=== PATIENT | male | born 1990 | race Two or more races ===

== ENCOUNTER 2019-12-25 10:20 | Outpatient (REF) | payer OTHER, SELFPAY | END 2019-12-25 10:21 | disposition home or self-care (01) | LOC: HO.LAB 10:20 | PROVIDERS: Visit Provider Internal Medicine | DX: Z20.828 Contact with and (suspected) exposure to other viral communicable diseases (principal) | CPT/HCPCS: C9803; U0003 ==

== ENCOUNTER 2023-01-20 13:16 | Outpatient (AMB) | payer BC, SELFPAY ==
--- NOTE | 2023-01-20 13:18 | A.OFFPC_ITS ---
Vital Signs 01/20/23 13:20 Height 5 ft 7 in Weight 372 lb 2 oz BMI 58.3 BP 120/76 Blood Pressure Location Lt brachial Position Sitting Pulse 90 Pulse Source Pulse Oximeter Pulse Oximetry (%) 96 Oxygen Delivery Method Room Air Intake Visit Reasons: npv/requesting phy Intake Note: Patient is a new patient here to establish care for Season Asthma. Transferring care from Dr Cesar( [facility] Nunez). Medical records have not been requested and have not received. Clinical Data Specialist Required: No Meat Pickler: Not Required per policy Accompanied by: Self / Same As Patient Allergies No Known Allergies Allergy (Verified 01/20/23 13:43) Medication List - Last Reconciled 01/20/23 by Michael Shelton PA-C albuterol 90 mcg/actuation 90 mcg inhalation DAILY Tobacco use date assessed: 01/20/23 Dental Screening Dental Screen Date: 01/20/23 Did you have a dental visit in the last 12 months?: No Did you have a dental problem in the last 6 months where you did not have access to dental care?: No Was dental information given to patient?: Patient has dentist HPI npv/requesting phy HPI Details Patient is a 32-year-old male here today for a new patient visit. Patient has a past medical history significant for obesity . obesity : Has been battling with weight issues his entire life. He feels he is not a big eater though does report having a small addiction to soda. He is not very physically active and does not do any dedicated workups. He is interested in establishing care with weight management progression of. .. Asthma: Does have an albuterol inhaler available to him to use on a p.r.n. basis. He does report his asthma exacerbates during changes of seasons. .. concerns--> he does report his father has sleep apnea. He does report family members to tell him he snores very loudly and has apneic episodes at night. He does have some daytime somnolence. STOP BANG- high risk for obstructive sleep apnea .. VAccine : Up-to-date with COVID and flu vaccine, needs tetanus vaccine [facility] Surgical History No pertinent past surgical history Family History Father HTN (hypertension) Sister HTN (hypertension) Diabetes Social History (Updated 01/20/23 @ 13:46 by Michael Shelton PA-C) Housing: House Alcohol intake: never Patient Tobacco Use Status: Never used Tobacco e-Cigarette/Vaping Use: Never Used Second Hand Smoke Exposure: No service: No Current occupational status: employed Current occupation: [employer] Cognitive needs: No Hearing needs: No Vision needs: Yes (glasses) Questionnaire PHQ-9 Over the last 2 weeks, how often have you been bothered by any of the following problems? 1. Little interest or pleasure in doing things: not at all 2. Feeling down, depressed, or hopeless: not at all 3. Trouble falling or staying asleep, or sleeping too much: not at all 4. Feeling tired or having little energy: not at all 5. Poor appetite or overeating: not at all 6. Feeling bad about yourself - or that you are a failure or have let yourself or your family down: not at all 7. Trouble concentrating on things, such as reading the newspaper or watching television: not at all 8. Moving or speaking so slowly that other people could have noticed. Or the opposite - being so fidgety or restless that you have been moving around a lot more than usual: not at all 9. Thoughts that you would be better off or of hurting yourself in some way: not at all Total score: 0 Depression Screening Interpretation: Negative Depression Screening Done: Yes 99253 - PHQ-9 Billing: Yes Source: Developed by Drs. Francisco Javier Fernandez, Tia Alvarado, Fermin Plata and colleagues, with an educational janene from [employer]. Thrive Questionnaire Date Thrive assessed: 01/20/23 I am a: Patient What is your living situation today?: I have a steady place to live Within the past 12 months, did the food you bought not last and you didn't have the money to get more?: Never true Within the past 12 months, did you worry whether your food would run out before you got money to buy more?: Never true Do you have trouble paying for medicines?: No Do you have trouble getting transportation to medical appointments?: No Do you have trouble paying your heating and electricity bill?: No Do you have trouble taking care of your child, family member or friend?: No Do you have trouble with day-to-day activities such as bathing, preparing meals, shopping, managing finances, etc.?: No Are you currently unemployed and looking for a job?: No Are you interested in more education?: No Currently or been in a relationship where the following occur: no concerns reported AUDIT C Alcohol Use Questionnaire (AUDIT-C) 1. How often do you have a drink containing alcohol?: Never Total Score: 0 TOY-7 AMB Questionnaire TOY-7 Date TOY - 7 assessed: 01/20/23 Feeling nervous, anxious, or on edge: 0 = Not at all Not being able to stop or control worryin = Not at all Worrying too much about different things: 0 = Not at all Trouble relaxin = Not at all Being so restless that it is hard to sit still: 0 = Not at all Becoming easily annoyed or irritable: 0 = Not at all Feeling afraid as if something awful might happen: 0 = Not at all Total TOY-7 score (0-4 normal; 5-9 mild; 10-14 moderate; 15-21 severe): 0 Source: Developed by Drs. Francisco Javier Fernandez, Tia Alvarado, Fermin Plata and colleagues, with an educational janene from [employer]. TOY-7 Assessment Billing TOY-7 Assessment Tool: TOY-7 Assessment 57345 ACT Questionnaire In the past 4 weeks, how much of the time did your asthma keep you from getting as much done at work, school or at home?: None of the time During the past 4 weeks, how often have you had shortness of breath?: Not at all During the past 4 weeks, how often did your asthma symptoms wake you up at night or earlier than usual in the morning?: Not at all During the past 4 weeks, how often have you had to use your rescue inhaler or nebulizer medication?: Not at all How would you rate your asthma control during the past 4 weeks?: Completely controlled ACT Interpretation: Negative Score: 25 Review of Systems Const Denies body aches, Denies chills, Denies excessive sweating, Denies fatigue, Denies fever(s) and Denies headache(s) Eyes Denies blurry vision ENT Denies dysphagia, Denies vertigo, Denies dizziness, Denies headache(s), Denies hearing loss and Denies tinnitus Card Denies chest pain, Denies chest pain with activity, Denies syncope, Denies irregular heart rhythm and Denies dyspnea Resp Denies chest congestion, Denies cough, Denies hemoptysis, Denies dyspnea and Denies wheezing GI Denies abdominal pain, Denies melena, Denies hematochezia, Denies coffee ground emesis, Denies dysphagia, Denies diarrhea, Denies nausea and Denies vomiting Denies difficulty urinating, Denies dysuria, Denies urinary frequency, Denies urinary hesitancy and Denies urinary urgency Musc Denies arthralgias, Denies limited range of motion, Denies muscle cramps and Denies muscle weakness Skin/Breast Denies rash and Denies skin ulcer Neuro Denies Abnormal speech present, Denies confusion, Denies vertigo, Denies dizziness, Denies syncope, Denies headache(s), Denies memory loss and Denies seizure-like activity Psych Denies anxiety, Denies confusion, Denies depression, Denies memory loss, Denies panic attacks and Denies paranoia Endo Denies excessive sweating, Denies fatigue, Denies flushing, Denies polydipsia and Denies polyuria Aller/Immun Denies wheezing Physical exam (Primary Care) Vital Signs: Last Vital Signs Pulse 90 01/20/23 13:20 BP 120/76 01/20/23 13:20 Pulse Ox 96 01/20/23 13:20 Oxygen Delivery Method Room Air 01/20/23 13:20 BMI result Body Mass Index 58.3 BMI Assessment/Plan discussion: High Tobacco/Smoking Status: Tobacco use Status Tobacco use date assessed 01/20/23 01/20/23 13:32 Patient Tobacco Use Status Never used Tobacco 01/20/23 13:46 e-Cigarette/Vaping Use Never Used 01/20/23 13:46 PHQ-9: PHQ-9 Score PHQ-9: Total score 0 01/20/23 14:07 Depression Screening Interpretation: Negative Thrive Assessment: Date of Thrive Assessment Date Thrive assessed 01/20/23 01/20/23 13:32 Currently or been in a relationship where the following occur: no concerns reported Const Other: Obese- General: cooperative, comfortable, no acute distress, alert and awake; No confusion Orientation/consciousness: oriented to person, oriented to place, patient oriented x3 and No confusion HENMT Other: LARGE NECK GIRTH NOTED Head: Yes normocephalic Ears: external ears normal and TM's normal bilaterally Face and sinus: No sinus tenderness Mouth: Normal oral and palatal mucosa present and tongue normal Teeth and gingiva: dentition normal and gingiva normal Throat: Yes posterior oropharynx normal, Yes tonsils normal and Yes uvula midline Eyes Conjunctivae: conjunctivae normal Sclerae: sclerae normal Pupils: Equal, round and reactive pupils present EOM: EOMs intact bilaterally Direct Ophthalmoscopy: No no photophobia Neck Neck: Yes no lymphadenopathy, No tender and Yes no JVD Thyroid: Thyroid normal Carotids: no bruits Chest Chest palpation & inspection: no tenderness Resp Effort & Inspection: normal respiratory effort, no audible wheezes, not labored and no stridor Auscultation: no crackles, no rales, no rhonchi and no wheezes Cardio Jugular venous distension: no JVD Rate: regular rate, not bradycardic and not tachycardic Rhythm: regular rhythm Bruits: no carotid bruits Peripheral pulses: Peripheral pulses 2+ throughout GI Inspection: Yes normal to inspection, No abdominal wall ecchymosis and No visible herniation Palpation (GI): Soft to palpation, nontender, no guarding, not rigid and No hepatosplenomegaly present Auscultation: normoactive bowel sounds General: Yes no CVA tenderness Back/Spine/Pelvis Back: no CVA tenderness and No back tenderness Cervical Spine: cervical ROM normal Thoracic/Lumbar Spine: thoracic and lumbar spine normal to inspection, straight leg raise negative bilaterally, No thoraco-lumbar ROM limited and No lumbar spinal tenderness Skin Lesions: no lesions Rashes: no rashes Wounds: no wounds Neuro General: oriented to person, oriented to place, patient oriented x3, CN's II-XI intact bilaterally and No confusion Cranial nerves: Yes Equal, round and reactive pupils present and Yes Normal accommodation reflex present Cognition (Neuro): normal cognition Speech: No Abnormal speech present Gait exam (Neuro): Normal gait present Motor exam (neuro): 5/5 motor strength present throughout Extrem Right upper extremity: full ROM; no cyanosis Left upper extremity: full ROM; no cyanosis Right lower extremity: no edema Left lower extremity: no edema Psych Appearance: grossly normal Mental Status: mental status grossly normal Affect: normal affect Attitude: cooperative Thought process: Normal thought process present Office Procedures Flu Questionnaire Does the patient have a severe egg allergy?: No Does the patient have severe life threatening allergies?: No Does the patient have a fever or illness today?: No Has the patient ever had Guillain-Blackey Syndrome?: No Has the patient ever had any past reaction to a flu shot?: No Immunizations flu vacc [id number] 6mos up(PF) 60 mcg(15 mcgx4)/0.5 mL IM syringe Performing Provider: Michael Shelton PA-C Performing Location: [facility] Administered by: DANIELLE Gutierrez on 01/20/23 13:38 Dose Route Admin Location Dispensed Lot Number Expiration Date ND General Education Professor 0.5 mL IM Left Deltoid 0.5 mL [id number] 08/10/23 [id number] VIS Given Date VIS Provided VIS Publication Date 01/20/23 Single Vaccine 20 Eligibility Eligibility Date Funding Source Not VFC Eligible 01/20/23 Private Boostrix Tdap 2.5 Lf unit-8 mcg-5 Lf/0.5 mL intramuscular syringe Performing Provider: Michael Shelton PA-C Per[facility] Location[facility] Administered by: TANG Varma on 01/20/23 14:07 Dose Route Admin Location Dispensed Lot Number Expiration Date NDC General Education Professor 0.5 mL IM Right Deltoid 0.5 mL [id number] 06/05/25 [id number] [id number] VIS Given Date VIS Provided VIS Publication Date 01/20/23 Single Vaccine 20 Eligibility Eligibility Date Funding Source Not VFC Eligible 01/20/23 Private Assessment and Plan Assessment & Plan (1) Annual physical exam: Code(s): Z00.00 - Encounter for general adult medical examination without abnormal findings (2) Obese: Code(s): E66.9 - Obesity, unspecified Qualifiers: Obesity type: due to excess calories Obesity classification: adult class 3 (BMI >= 40) Serious obesity comorbidity presence: without serious comorbidity Body mass index: BMI 50.0-59.9 Qualified Code(s): E66.01 - Morbid (severe) obesity due to excess calories; Z68.43 - Body mass index [BMI] 50.0- 59.9, adult Plan: Patient does understand his BMI is over 50 and would like to establish care with a weight program management intern. Advised on being more physically active and reducing his soda intake. (3) Screening for diabetes mellitus (DM): Code(s): Z13.1 - Encounter for screening for diabetes mellitus (4) AMANDO (obstructive sleep apnea): Code(s): G47.33 - Obstructive sleep apnea (adult) (pediatric) Plan: Patient does have signs symptoms of stroke to sleep apnea with daytime somnolence, witnessed episodes of apnea. He does have risk factors for obstructive sleep apnea as well. STOP BANG questionnaire indicating high risk for obstructive sleep apnea (5) Asthma: Code(s): J45.909 - Unspecified asthma, uncomplicated Qualifiers: Asthma complication type: uncomplicated Asthma persistence: intermittent Asthma severity: mild Qualified Code(s): J45.20 - Mild intermittent asthma, uncomplicated Plan: Only using albuterol inhaler on a very limited basis during changes of seasons. He does report allergies to cause his asthma to flare.. Otherwise denies any nighttime awakenings with asthma symptoms or asthma exacerbations. Orders: Orders Influenza [id number] Immunization 01/20/23 Z23 - Encounter for immunization TSH reflex Free T4 01/20/23 E66.9 - Obesity, unspecified RT home sleep study 01/20/23 G47.33 - Obstructive sleep apnea (adult) (pediatric) Comprehensive [place]. Panel Fast 01/20/23 Z13.1 - Encounter for screening for diabetes mellitus Complete Blood Count no Diff 01/20/23 E66.9 - Obesity, unspecified TDaP Immunization 01/20/23 E66.9 - Obesity, unspecified, Z23 - Encounter for immunization Referrals Bariatric Surgery Referral E66.9 - Obesity, unspecified Coding Level of Care Code New Pt Prev Care 18-39yr([id number] Diagnoses Annual physical exam Z00.00 Class 3 severe obesity due to excess calories without serious comorbidity with body mass index (BMI) of 50.0 to 59.9 in adult E66.01; Z68.43 Obesity type: due to excess calories Obesity classification: adult class 3 (BMI >= 40) Serious obesity comorbidity presence: without serious comorbidity Body mass index: BMI 50.0-59.9 Screening for diabetes mellitus (DM) Z13.1 AMANDO (obstructive sleep apnea) G47.33 Mild intermittent asthma without complication J45.20 Asthma complication type: uncomplicated Asthma persistence: intermittent Asthma severity: mild Additional Codes TOY-7 Assessment Billing - TOY-7 Assessment Tool: TOY-7 Assessment 35594 ([id number])
[2023-01-20 13:20] VITALS: BP 120/76; PULSE 90; O2SAT 96; BMI 58.3
== END 2023-01-20 14:11 | disposition home or self-care (01) ==
PROVIDERS: PCP Physician Assistant; Visit Provider Physician Assistant
DX: Z00.00 Encounter for general adult medical examination without abnormal findings (principal); E66.01 Morbid (severe) obesity due to excess calories; Z68.43 Body mass index [BMI] 50.0-59.9, adult; Z13.1 Encounter for screening for diabetes mellitus; G47.33 Obstructive sleep apnea (adult) (pediatric); J45.20 Mild intermittent asthma, uncomplicated
CPT/HCPCS: 90471; 90472; 90686; 90715; 99385

== ENCOUNTER 2023-02-21 16:15 | Outpatient (REF) | payer BC, SELFPAY ==
[2023-02-21 17:23] LABS: Hematocrit 42.6 % (42.0-52.0); Hemoglobin 13.7 g/dl (14.0-18.0); Mean Corpuscular HGB Conc 32.2 g/dl (31.0-36.0); Mean Corpuscular Hemoglobin 27.5 pg (27.0-33.0); Mean Corpuscular Volume 85.5 fL (80.0-98.0); Mean Platelet Volume 12.1 fL (9.4-12.4); Platelet Count 251 X10*3/uL (160-400); Red Blood Count 4.98 X10*6/uL (4.60-5.80); Red Cell Distribution Width 13.3 % (11.0-16.0); White Blood Count 11.9 X10*3/uL (4.8-10.8)
[2023-02-21 18:23] LABS: Albumin Level 4.3 g/dL (3.5-5.0); Alkaline Phosphatase 83 U/L (39-117); Anion Gap 12 (12-20); Bilirubin Total 0.4 mg/dL (0.0-1.0); Blood Urea Nitrogen 12 mg/dL (9-16); Calcium 9.5 mg/dL (8.4-10.2); Carbon Dioxide 28 mmol/L (22-29); Chloride 102 mmol/L (96-108); Estimated Glomerular Filt Rate > 60; Glucose Fasting 79 mg/dL (60-99); Potassium 4.1 mmol/L (3.3-5.1); Sodium 138 mmol/L (135-145); Total Protein 7.9 g/dL (6.5-8.0)
[2023-02-21 18:35] LABS: Alanine Aminotransferase 26 U/L (0-40); Aspartate Amino Transferase 14 U/L (5-37); TSH reflex Free T4 2.72 uIU/mL (0.32-4.0)
== END 2023-02-21 16:16 | disposition home or self-care (01) ==
LOC: HO.LAB 16:15
PROVIDERS: PCP Physician Assistant; Visit Provider Physician Assistant
DX: Z13.1 Encounter for screening for diabetes mellitus (principal); E66.9 Obesity, unspecified
CPT/HCPCS: 36415; 80053; 84443; 85027

== ENCOUNTER → 2023-03-06 08:09 | Outpatient (REF) | payer BC, SELFPAY | LOC: HO.SL 08:09 | PROVIDERS: PCP Physician Assistant; Visit Provider Physician Assistant | DX: G47.33 Obstructive sleep apnea (adult) (pediatric) (principal) | CPT/HCPCS: 95806 ==

== ENCOUNTER → 2023-03-06 08:26 | Outpatient (BNV) | payer BC, SELFPAY | PROVIDERS: PCP Physician Assistant; Visit Provider Internal Medicine | DX: G47.33 Obstructive sleep apnea (adult) (pediatric) (principal) | CPT/HCPCS: 95806 ==

== ENCOUNTER 2023-06-02 09:19 | Outpatient (AMB) | payer BC, SELFPAY ==
[2023-06-02 09:35] VITALS: BP 130/76; PULSE 84; O2SAT 96; BMI 60.1
--- NOTE | 2023-06-02 09:35 | A.OFFVIS_ITS ---
Vital Signs 3 06/02/23 09:35 Height 5 ft 7 in Weight 383 lb 9.669 oz BMI 60.1 BP 130/76 Blood Pressure Location Rt brachial Position Sitting Pulse 84 Pulse Source Pulse Oximeter Pulse Oximetry (%) 96 Oxygen Delivery Method Room Air Intake Visit Reasons: Obstructive sleep apnea Allergies No Known Allergies Allergy (Verified 06/02/23 09:37) HPI HPI Obstructive sleep apnea: Details: Robson is a pleasant 33 year old male, never smoker, with underlying asthma, severe obstructive sleep apnea and morbid obesity. He was referred by PCP for pulmonary evaluation after recent sleep study. Home PSG revealed AHI of 66 with significant nocturnal hypoxia. He is interested in starting CPAP therapy. He reports father with AMANDO, otherwise denies any pertinent family history. He denies any occupational exposures. At this time, he denies any respiratory symptoms and feels his asthma is well controlled with albuterol PRN. He is aware if he would like to further evaluate asthma to inform office. [facility] Surgical History No pertinent past surgical history Family History Father HTN (hypertension) Sister HTN (hypertension) Diabetes Social History (Updated 01/20/23 @ 13:46 by Michael Shelton PA-C) Housing: House Alcohol intake: never Patient Tobacco Use Status: Never used Tobacco e-Cigarette/Vaping Use: Never Used Second Hand Smoke Exposure: No service: No Current occupational status: employed Current occupation: [employer] Cognitive needs: No Hearing needs: No Vision needs: Yes (glasses) Review of Systems Const Denies chills, Denies excessive sweating, Denies fever(s), Denies headache(s) and Denies night sweats Eyes Denies dry eyes, Denies irritation and Denies itchy eyes ENT Reports Normal hearing present, Denies headache(s), Denies nasal congestion, Denies nasal discharge, Denies post nasal drip and Denies sore throat Card Denies chest pain, Denies chest pain at rest, Denies chest pain with activity, Denies claudication, Denies leg edema, Denies dyspnea, Denies dyspnea on exertion, Denies orthopnea and Denies paroxysmal nocturnal dyspnea Resp Denies chest congestion, Denies excessive phlegm production, Denies pain on inspiration, Denies pain with cough, Denies dyspnea, Denies dyspnea on exertion, Denies stridor and Denies wheezing Musc Denies myalgias Neuro Reports Normal hearing present and Denies headache(s) Endo Denies excessive sweating Leo/Lymph Denies lymphadenopathy Aller/Immun Denies itchy eyes, Denies seasonal rhinorrhea and Denies wheezing Physical Exam Vital Signs: Last Vital Signs Pulse 84 06/02/23 09:35 BP 130/76 06/02/23 09:35 Pulse Ox 96 06/02/23 09:35 Oxygen Delivery Method Room Air 06/02/23 09:35 BMI result Body Mass Index 60.1 Const General: cooperative, healthy appearing, comfortable, no acute distress, well developed and alert Nutritional Appearance: obese Orientation/consciousness: patient oriented x3 Limitations: no limitations HEENT Head: Yes normal to inspection, Yes normocephalic and Yes atraumatic Ears: hearing grossly normal bilaterally and external ears normal Eyes General: appearance normal, both eyes and all related structures Eyelids: Yes eyelids normal Sclerae: sclerae normal EOM: EOMs intact bilaterally Neck Neck: Yes normal visual inspection and Yes no lymphadenopathy Lymphatic: no lymphadenopathy noted Chest Chest palpation & inspection: normal inspection of the chest Resp Effort & Inspection: normal respiratory effort, able to speak in complete sentences, no audible wheezes, no cough, no stridor, not tachypneic, no tripod positioning and no use of accessory muscles Auscultation: clear to auscultation bilaterally Cardio Jugular venous distension: no JVD Rate: regular rate Rhythm: regular rhythm Skin Other: warm, dry General skin exam: no rashes or lesions noted Neuro General: patient oriented x3 Cranial nerves: Yes Normal hearing present Cognition (Neuro): normal cognition Gait exam (Neuro): Normal gait present Extrem General: Yes normal to inspection, Yes capillary refill normal, Yes no clubbing, cyanosis or edema and Yes no pedal edema Psych Appearance: grossly normal and well kempt Speech and movement: Normal speech and movement present and Clear speech present Affect: normal affect Attitude: cooperative Thought process: Normal thought process present Thought content: Normal thought content present Insight: Good insight present (Psych) Judgement: Good judgement present (Psych) Results Reviewed Results Reviewed: Assessment & Plan Assessment & Plan (1) AMANDO (obstructive sleep apnea): Code(s): G47.33 - Obstructive sleep apnea (adult) (pediatric) Category: Medical (2) Asthma: Code(s): J45.909 - Unspecified asthma, uncomplicated Category: Medical Qualifiers: Asthma complication type: uncomplicated Asthma persistence: i ntermittent Asthma severity: mild Qualified Code(s): J45.20 - Mild intermittent asthma, uncomplicated (3) Obese: Code(s): E66.9 - Obesity, unspecified Category: Medical Qualifiers: Body mass index: BMI 50.0-59.9 Obesity classification: adult class 3 (BMI >= 40) Obesity type: due to excess calories Serious obesity comorbidity presence: without serious comorbidity Qualified Code(s): E66.01 - Morbid (severe) obesity due to excess calories; Z68.43 - Body mass index [BMI] 50.0-59.9, adult (4) Nocturnal hypoxemia: Code(s): G47.34 - Idiopathic sleep related nonobstructive alveolar hypoventilation Category: Medical Plan Reviewed sleep study results with patient which revealed an AHI of 66, severe obstructive sleep apnea, with nocturnal hypoexmia, Given the severity, combined with persistent nocturnal hypoxemia, an in lab titration study is recommended. Will enter this. Discussed the effects of untreated sleep apnea and importance of compliance with CPAP therapy. All questions were answered and patient is in agreement of plan. Will follow up with patient after to review results and start on CPAP therapy.? Orders: Orders 2 RT PSG in-lab sleep titration Today G47.33 - Obstructive sleep apnea (adult) (pediatric), G47.34 - Idiopathic sleep related nonobstructive alveolar hypoventilation
== END 2023-06-02 09:55 | disposition home or self-care (01) ==
PROVIDERS: PCP Physician Assistant; Referring Provider Physician Assistant; Visit Provider Nurse Practitioner Family
DX: G47.33 Obstructive sleep apnea (adult) (pediatric) (principal); J45.20 Mild intermittent asthma, uncomplicated; E66.01 Morbid (severe) obesity due to excess calories; Z68.43 Body mass index [BMI] 50.0-59.9, adult; G47.34 Idiopathic sleep related nonobstructive alveolar hypoventilation
CPT/HCPCS: 99203

== ENCOUNTER → 2023-06-02 09:19 | Outpatient (BNVA) | payer BC, SELFPAY | PROVIDERS: PCP Physician Assistant; Referring Provider Physician Assistant; Visit Provider Nurse Practitioner Family ==

== ENCOUNTER → 2023-07-04 20:30 | Outpatient (REF) | payer BC, SELFPAY | LOC: HO.SL 20:30 | PROVIDERS: PCP Physician Assistant; Visit Provider Nurse Practitioner Family | DX: G47.33 Obstructive sleep apnea (adult) (pediatric) (principal); G47.34 Idiopathic sleep related nonobstructive alveolar hypoventilation | CPT/HCPCS: 95811 ==

== ENCOUNTER → 2023-07-04 23:50 | Outpatient (BNV) | payer BC, SELFPAY | PROVIDERS: PCP Physician Assistant; Visit Provider Internal Medicine | DX: G47.33 Obstructive sleep apnea (adult) (pediatric) (principal) | CPT/HCPCS: 95811 ==

== ENCOUNTER 2023-07-14 15:12 | Outpatient (AMB) | payer BC, SELFPAY ==
[2023-07-14 15:30] VITALS: BP 130/68; PULSE 93; O2SAT 96; BMI 60.6
--- NOTE | 2023-07-14 15:30 | A.OFFVIS_ITS ---
Vital Signs 07/14/23 15:30 Height 5 ft 7 in Weight 386 lb 14.58 oz BMI 60.6 BP 130/68 Blood Pressure Location Rt radial Position Sitting Pulse 93 Pulse Source Pulse Oximeter Pulse Oximetry (%) 96 Oxygen Delivery Method Room Air Intake Visit Reasons: Obstructive sleep apnea Allergies No Known Allergies Allergy (Verified 07/14/23 15:32) HPI HPI Obstructive sleep apnea: Details: Robson is a pleasant 33 year old male, never smoker, with underlying asthma, severe obstructive sleep apnea and morbid obesity. He was referred by PCP for pulmonary evaluation after recent sleep study. Home PSG revealed AHI of 66 with significant nocturnal hypoxia. He was sent for inlab titration study to obtain optimal pressures and presents today to review results. At this time, he denies any respiratory symptoms and feels his asthma is well controlled with albuterol PRN. [facility] Surgical History No pertinent past surgical history Family History Father HTN (hypertension) Sister HTN (hypertension) Diabetes Social History Housing: House Alcohol intake: never Patient Tobacco Use Status: Never used Tobacco e-Cigarette/Vaping Use: Never Used Second Hand Smoke Exposure: No service: No Current occupational status: employed Current occupation: [employer] Cognitive needs: No Hearing needs: No Vision needs: Yes (glasses) Review of Systems Const Denies chills, Denies excessive sweating, Denies fever(s), Denies headache(s) and Denies night sweats Eyes Denies dry eyes, Denies irritation and Denies itchy eyes ENT Reports Normal hearing present, Denies headache(s), Denies nasal congestion, Denies nasal discharge, Denies post nasal drip and Denies sore throat Card Denies chest pain, Denies chest pain at rest, Denies chest pain with activity, Denies claudication, Denies leg edema, Denies dyspnea, Denies dyspnea on exertion, Denies orthopnea and Denies paroxysmal nocturnal dyspnea Resp Denies chest congestion, Denies excessive phlegm production, Denies pain on inspiration, Denies pain with cough, Denies dyspnea, Denies dyspnea on exertion, Denies stridor and Denies wheezing Musc Denies myalgias Neuro Reports Normal hearing present and Denies headache(s) Endo Denies excessive sweating Leo/Lymph Denies lymphadenopathy Aller/Immun Denies itchy eyes, Denies seasonal rhinorrhea and Denies wheezing Physical Exam Vital Signs: Last Vital Signs Pulse 93 07/14/23 15:30 BP 130/68 07/14/23 15:30 Pulse Ox 96 07/14/23 15:30 Oxygen Delivery Method Room Air 07/14/23 15:30 BMI result Body Mass Index 60.6 Const General: cooperative, healthy appearing, comfortable, no acute distress, well developed and alert Nutritional Appearance: obese Orientation/consciousness: patient oriented x3 Limitations: no limitations HEENT Head: Yes normal to inspection, Yes normocephalic and Yes atraumatic Ears: hearing grossly normal bilaterally and external ears normal Eyes General: appearance normal, both eyes and all related structures Eyelids: Yes eyelids normal Sclerae: sclerae normal EOM: EOMs intact bilaterally Neck Neck: Yes normal visual inspection and Yes no lymphadenopathy Lymphatic: no lymphadenopathy noted Chest Chest palpation & inspection: normal inspection of the chest Resp Effort & Inspection: normal respiratory effort, able to speak in complete sentences, no audible wheezes, no cough, no stridor, not tachypneic, no tripod positioning and no use of accessory muscles Auscultation: clear to auscultation bilaterally Cardio Jugular venous distension: no JVD Rate: regular rate Rhythm: regular rhythm Skin Other: warm, dry General skin exam: no rashes or lesions noted Neuro General: patient oriented x3 Cranial nerves: Yes Normal hearing present Cognition (Neuro): normal cognition Gait exam (Neuro): Normal gait present Extrem General: Yes normal to inspection, Yes capillary refill normal, Yes no clubbing, cyanosis or edema and Yes no pedal edema Psych Appearance: grossly normal and well kempt Speech and movement: Normal speech and movement present and Clear speech present Affect: normal affect Attitude: cooperative Thought process: Normal thought process present Thought content: Normal thought content present Insight: Good insight present (Psych) Judgement: Good judgement present (Psych) Assessment & Plan Assessment & Plan (1) AMANDO (obstructive sleep apnea): Code(s): G47.33 - Obstructive sleep apnea (adult) (pediatric) Category: Medical (2) Asthma: Code(s): J45.909 - Unspecified asthma, uncomplicated Category: Medical Qualifiers: Asthma complication type: uncomplicated Asthma persistence: intermittent Asthma severity: mild Qualified Code(s): J45.20 - Mild intermittent asthma, uncomplicated (3) Obese: Code(s): E66.9 - Obesity, unspecified Category: Medical Qualifiers: Body mass index: BMI 50.0-59.9 Obesity classification: adult class 3 (BMI >= 40) Obesity type: due to excess calories Serious obesity comorbidity presence: without serious comorbidity Qualified Code(s): E66.01 - Morbid (severe) obesity due to excess calories; Z68.43 - Body mass index [BMI] 50.0-59.9, adult (4) Nocturnal hypoxemia: Code(s): G47.34 - Idiopathic sleep related nonobstructive alveolar hypoventilation Category: Medical Plan Reviewed home sleep study results with patient which revealed an AHI of 66, severe obstructive sleep apnea, with nocturnal hypoxemia. Will start on CPAP therapy with settings 6-16 now and once in lab titration results available adjust settings as needed. Discussed the effects of untreated sleep apnea and importance of compliance with CPAP therapy. All questions were answered and patient is in agreement of plan. Will follow up in 8-10 weeks or sooner if needed. Coding Level of Care Code Est Pt Level 3 (47140) Diagnoses AMANDO (obstructive sleep apnea) G47.33 Mild intermittent asthma without complication J45.20 Asthma complication type: uncomplicated Asthma persistence: intermittent Asthma severity: mild Class 3 severe obesity due to excess calories without serious comorbidity with body mass index (BMI) of 50.0 to 59.9 in adult E66.01; Z68.43 Body mass index: BMI 50.0-59.9 Obesity classification: adult class 3 (BMI >= 40) Obesity type: due to excess calories Serious obesity comorbidity presence: without serious comorbidity Nocturnal hypoxemia G47.34
== END 2023-07-14 15:51 | disposition home or self-care (01) ==
PROVIDERS: PCP Physician Assistant; Visit Provider Nurse Practitioner Family
DX: G47.33 Obstructive sleep apnea (adult) (pediatric) (principal); J45.20 Mild intermittent asthma, uncomplicated; E66.01 Morbid (severe) obesity due to excess calories; Z68.43 Body mass index [BMI] 50.0-59.9, adult; G47.34 Idiopathic sleep related nonobstructive alveolar hypoventilation
CPT/HCPCS: 99213

== ENCOUNTER → 2023-07-14 15:12 | Outpatient (BNVA) | payer BC, SELFPAY | PROVIDERS: PCP Physician Assistant; Visit Provider Nurse Practitioner Family ==

== ENCOUNTER 2024-09-29 09:22 | Outpatient (AMB) | payer BC, SELFPAY ==
--- NOTE | 2024-09-29 09:38 | MHC.PC.OV ---
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 Accompanied by: Self / Same As Patient Allergies No Known Allergies Allergy (Verified 09/29/24 09:51) Medication List - Last Reconciled 09/29/24 by Joan Box PA-C albuterol 90 mcg/actuation 90 mcg inhalation DAILY Tobacco use date assessed: 09/29/24 Dental Screening Dental Screen Date: 09/29/24 Did you have a dental visit in the last 12 months?: No Did you have a dental problem in the last 6 months where you did not have access to dental care?: No Was dental information given to patient?: No HPI Requesting Cpap HPI Details 34-year-old male with past medical history of obstructive sleep apnea, asthma and nocturnal hypoxemia last seen 01/2023 by PA coming in for acute problem. Presenting for a follow-up on sleep apnea management and weight management consultation. Sleep apnea was diagnosed following a sleep study conducted in 2023, and the patient has not yet received a CPAP machine. The patient has not seen a mobile application architect recently and is awaiting further instructions regarding CPAP machine acquisition. Asthma is managed with albuterol, used primarily during spring for allergy-related symptoms. Blood pressure was noted to be elevated initially, but a subsequent measurement showed improvement to 128/86 mmHg. The patient is seeking assistance with weight management, considering both medical and surgical options. [facility] Surgical History No pertinent past surgical history Family History Father HTN (hypertension) Sister HTN (hypertension) Diabetes Social History Housing: House Alcohol intake: never Patient Tobacco Use Status: Never used Tobacco e-Cigarette/Vaping Use: Never Used Second Hand Smoke Exposure: No service: No Current occupational status: employed Current occupation: [employer] Cognitive needs: No Hearing needs: No Vision needs: Yes (glasses) Questionnaire PHQ-9 Over the last 2 weeks, how often have you been bothered by any of the following problems? 1. Little interest or pleasure in doing things: not at all 2. Feeling down, depressed, or hopeless: not at all 3. Trouble falling or staying asleep, or sleeping too much: not at all 4. Feeling tired or having little energy: not at all 5. Poor appetite or overeating: not at all 6. Feeling bad about yourself - or that you are a failure or have let yourself or your family down: not at all 7. Trouble concentrating on things, such as reading the newspaper or watching television: not at all 8. Moving or speaking so slowly that other people could have noticed. Or the opposite - being so fidgety or restless that you have been moving around a lot more than usual: not at all 9. Thoughts that you would be better off or of hurting yourself in some way: not at all Total score: 0 44341 - PHQ-9 Billing: Yes Source: Developed by Drs. Francisco Javier Fernandez, Tia Alvarado, Fermin Plata and colleagues, with an educational janene from [employer]. Thrive Questionnaire Date Thrive assessed: 09/29/24 I am a: Patient What is your living situation today?: I have a steady place to live Within the past 12 months, did the food you bought not last and you didn't have the money to get more?: Never true Within the past 12 months, did you worry whether your food would run out before you got money to buy more?: Never true Do you have trouble paying for medicines?: No Do you have trouble getting transportation to medical appointments?: No Do you have trouble paying your heating and electricity bill?: No Do you have trouble taking care of your child, family member or friend?: No Do you have trouble with day-to-day activities such as bathing, preparing meals, shopping, managing finances, etc.?: No Are you currently unemployed and looking for a job?: No Are you interested in more education?: No Please select the resources that you would like help with: None Currently or been in a relationship where the following occur: No concerns reported THRIVE Score: 0 AUDIT C Alcohol Use Questionnaire (AUDIT-C) 1. How often do you have a drink containing alcohol?: Never 3. How often do you have six or more drinks on one occasion?: Never Total Score: 0 TOY-7 AMB Questionnaire TOY-7 Date TOY - 7 assessed: 09/29/24 Feeling nervous, anxious, or on edge: 0 = Not at all Not being able to stop or control worryin = Not at all Worrying too much about different things: 0 = Not at all Trouble relaxin = Not at all Being so restless that it is hard to sit still: 0 = Not at all Becoming easily annoyed or irritable: 0 = Not at all Feeling afraid as if something awful might happen: 0 = Not at all Total TOY-7 score (0-4 normal; 5-9 mild; 10-14 moderate; 15-21 severe): 0 Source: Developed by Drs. Francisco Javier Fernandez, Tia Alvarado, Fermin Plata and colleagues, with an educational janene from [employer]. TOY-7 Assessment Billing TOY-7 Assessment Tool: TOY-7 Assessment 02163 Review of Systems Const Denies body aches, Denies chills, Denies fever(s), Denies headache(s) and Denies poor appetite Eyes Reports no additional complaints ENT Denies dizziness and Denies headache(s) Card Denies chest pain, Denies syncope, Denies edema, Denies lightheadedness and Denies dyspnea Resp Denies cough and Denies dyspnea GI Denies abdominal pain, Denies constipation, Denies diarrhea, Denies nausea and Denies vomiting Reports no additional complaints Musc Reports no additional complaints and Denies abnormal gait Skin/Breast Reports system reviewed and no additional complaints, except as documented Neuro Denies abnormal gait, Denies dizziness, Denies syncope and Denies headache(s) Psych Reports no additional complaints Physical exam (Primary Care) Vital Signs: Last Vital Signs Pulse 89 09/29/24 09:40 BP 128/86 09/29/24 10:02 Pulse Ox 98 09/29/24 09:40 Tobacco/Smoking Status: Tobacco use Status Tobacco use date assessed 09/29/24 09/29/24 09:44 Patient Tobacco Use Status Never used Tobacco 09/29/24 09:39 e-Cigarette/Vaping Use Never Used 09/29/24 09:39 PHQ-9: PHQ-9 Score PHQ-9: Total score 0 09/29/24 10:06 Thrive Assessment: Date of Thrive Assessment Date Thrive assessed 09/29/24 09/29/24 09:39 Currently or been in a relationship where the following occur: No concerns reported Const General: cooperative, healthy appearing, comfortable and no acute distress Orientation/consciousness: patient oriented x3 HENMT Head: Yes normocephalic Ears: hearing grossly normal bilaterally General nose exam: Normal external nose present Eyes General: appearance normal, both eyes and all related structures Conjunctivae: conjunctivae normal Neck Neck: Yes full ROM and Yes no lymphadenopathy Resp Effort & Inspection: normal respiratory effort Auscultation: clear to auscultation bilaterally, no crackles, no rales, no rhonchi and no wheezes Cardio Rate: regular rate Rhythm: regular rhythm Skin General skin exam: no rashes or lesions noted Neuro General: patient oriented x3 Gait exam (Neuro): Normal gait present Extrem General: Yes normal to inspection, Yes full ROM and No edema Psych Affect: normal affect Attitude: cooperative Insight: Good insight present (Psych) Judgement: Good judgement present (Psych) Coding Level of Care Code Est Pt Level 3 (68476) Diagnoses Mild intermittent asthma without complication J45.20 Asthma complication type: uncomplicated Asthma persistence: intermittent Asthma severity: mild AMANDO (obstructive sleep apnea) G47.33 Morbid obesity with BMI of 60.0-69.9, adult E66.01; Z68.44 Additional Codes TOY-7 Assessment Billing - TOY-7 Assessment Tool: TOY-7 Assessment 48323 ([id number]) PHQ-9 - 29100 - PHQ-9 Billing: Yes ([id number]) Assessment & Plan Assessment & Plan (1) Asthma: Code(s): J45.909 - Unspecified asthma, uncomplicated Category: Medical Qualifiers: Asthma complication type: uncomplicated Asthma persistence: intermittent Asthma severity: mild Qualified Code(s): J45.20 - Mild intermittent asthma, uncomplicated Plan: Asthma currently controlled on present medications. Continue on albuterol as needed. Avoid triggers such as allergies. (2) AMANDO (obstructive sleep apnea): Code(s): G47.33 - Obstructive sleep apnea (adult) (pediatric) Category: Medical Plan: Patient has not been able to obtain the CPAP due to issues with his insurance. Per pulmonology he needs to be seen for follow up prior to CPAP being filled. They will reach out to schedule an appointment. (3) Morbid obesity with BMI of 60.0-69.9, adult: Code(s): E66.01 - Morbid (severe) obesity due to excess calories; Z68.44 - Body mass index [BMI] 60.0-69.9, adult Category: Medical Plan: Healthy diet and regular exercise is encouraged. Referral was placed to weight management clinic today Plan The patient will be followed up regarding the CPAP machine for sleep apnea management, with a message sent to [facility] to confirm the order status. Asthma management appears stable with seasonal use of albuterol, and no immediate changes are necessary. Blood pressure will be monitored, with the recent measurement showing improvement to 128/86 mmHg. A referral for weight management has been placed, and the patient will be contacted by the clinic for further consultation. Annual blood work, including cholesterol screening, has been ordered, requiring fasting prior to the test. This note was constructed using voice recognition software. While every effort has been made to ensure accuracy and shovel loader operator, still areas may have been included sometimes these areas may affect the content or meeting of the given symptoms. Total time spent caring for the patient today was twenty minutes. This includes time spent before the visit reviewing the chart, time spent during the visit, and time spent after the visit and documentation. Patient was informed and verbally consented to the use of an ambient scribe for clinic note documentation during this visit. Orders: Orders Comprehensive Met. Panel Today Z00.00 - Encounter for general adult medical examination without abnormal findings, Z13.1 - Encounter for screening for diabetes mellitus Complete Blood Count Auto Diff Today E66.01 - Morbid (severe) obesity due to excess calories, Z00.00 - Encounter for general adult medical examination without abnormal findings, Z68.43 - Body mass index [BMI] 50.0-59.9, adult Vitamin B12 and Folate Today E66.01 - Morbid (severe) obesity due to excess calories, Z13.21 - Encounter for screening for nutritional disorder, Z68.43 - Body mass index [BMI] 50.0-59.9, adult Vitamin D 25-OH Total Today E66.01 - Morbid (severe) obesity due to excess calories, Z13.21 - Encounter for screening for nutritional disorder, Z68.43 - Body mass index [BMI] 50.0-59.9, adult TSH reflex Free T4 Today E66.01 - Morbid (severe) obesity due to excess calories, Z13.29 - Encounter for screening for other suspected endocrine disorder, Z68.43 - Body mass index [BMI] 50.0-59.9, adult Lipid Panel Today Z13.220 - Encounter for screening for lipoid disorders Referrals Medical Weight Management Referral E66.01 - Morbid (severe) obesity due to excess calories, Z68.44 - Body mass index [BMI] 60.0-69.9, adult
[2024-09-29 09:40] VITALS: BP 150/98; PULSE 89; O2SAT 98
[2024-09-29 10:02] VITALS: BP 128/86
--- OUTSIDE RECORDS SUMMARY | 2024-09-29 10:06 | XMS_ITS | Encounter Summary ---
Author Organization [facility] Address [address] [place] [id number] Phone Care Team Providers Care Handle Assembler Name Role Phone Samir Cesar MD Primary Care Provider Unavailabl e Encounter Details Date Type Department Care Team (Late st Contact Info) Description 09/26/2016 Conversion Encounter [facility] - [address] [address] Social History Tobacco Use Types Packs/Day Years Used Date Smoking Tobacco: Never Comments:Never smoker Sex and Gender Information Value Date Recorded Sex Assigned at Not on file Legal Sex Male 4:45 PM EDT Gender Identity Not on file Sexual Orientation Not on file documented as of this encounter Plan of Treatment Not on file documented as of this encounter Visit Diagnoses Not on filedocumented in this encounter Care Teams Handle Assembler Relationship Specialty Start Date End Date Samir Cesar MD PCP - General 09/20/16 documented as of this encounter
== END 2024-09-29 10:06 | disposition home or self-care (01) ==
LOC: HO.HMCH 09:23
PROVIDERS: PCP Physician Assistant
DX: J45.20 Mild intermittent asthma, uncomplicated (principal); G47.33 Obstructive sleep apnea (adult) (pediatric); E66.01 Morbid (severe) obesity due to excess calories; Z68.44 Body mass index [BMI] 60.0-69.9, adult

== ENCOUNTER → 2024-09-29 09:22 | Outpatient (BNVA) | payer BC, SELFPAY | PROVIDERS: PCP Physician Assistant | DX: G47.33 Obstructive sleep apnea (adult) (pediatric) (principal); J45.20 Mild intermittent asthma, uncomplicated; R09.02 Hypoxemia; E66.01 Morbid (severe) obesity due to excess calories; Z68.41 Body mass index [BMI] 40.0-44.9, adult | CPT/HCPCS: 96127 ==

== ENCOUNTER 2025-01-20 13:20 | Outpatient (AMB) | payer BC, SELFPAY ==
--- NOTE | 2025-01-20 13:23 | A.OFFPC_ITS ---
Vital Signs 01/20/25 13:25 Height 5 ft 7 in Weight 404 lb 6 oz BMI 63.3 BP 124/80 Blood Pressure Location Lt brachial Position Sitting Respiration 16 Pulse 78 Pulse Source Pulse Oximeter Temp 96.9 F Temp Source Temporal Artery Scan Pulse Oximetry (%) 95 Oxygen Delivery Method Room Air Intake Visit Reasons: PE Nurse Monitoring Required: No Accompanied by: Self / Same As Patient Allergies No Known Allergies Allergy (Verified 01/20/25 13:38) Medication List - Last Reconciled 01/20/25 by Michael Shelton PA-C albuterol 90 mcg/actuation 90 mcg inhalation DAILY Tobacco use date assessed: 09/29/24 Dental Screening Dental Screen Date: 09/29/24 HPI PE 2 HPI Details Patient is a 34-year-old male here today for routine annual physical. Patient has a a past medical history significant for morbid obesity, obstructive sleep apnea and asthma. .. Severe Obstructive Sleep apnea: He has a diagnosis of severe obstructive sleep apnea and was previously seen by a workday manager. Has undergone titration study recommended CPAP settings 12 cm. He was unable to obtain a CPAP machine previously because another physical exam was required. Will also try him on Zepbound to help him with weight reduction and control of his obstructive sleep apnea as well. . Class 3 obesity : Has unfortunately gained weight since last office visit. BMI today at 63 Has been battling with weight issues his entire life. He feels he is not a big eater though does report having a small addiction to soda. He is not very physically active and does not do any dedicated workups. He is interested in establishing care with weight management progression of. .. Asthma: Does have an albuterol inhaler available to him to use on a p.r.n. basis. He does report his asthma exacerbates during changes of seasons. .. VAccine : Up-to-date with COVID and flu vaccine, UTD with Tdap, Need Flu and PCV -20 PFSH Surgical History No pertinent past surgical history Family History Father HTN (hypertension) Lymphoma Sister HTN (hypertension) Diabetes Social History Housing: House Alcohol intake: never Patient Tobacco Use Status: Never used Tobacco e-Cigarette/Vaping Use: Never Used Second Hand Smoke Exposure: No service: No Current occupational status: employed Current occupation: [employer] Cognitive needs: No Hearing needs: No Vision needs: Yes (glasses) Questionnaire Thrive Questionnaire Date Thrive assessed: 09/29/24 I am a: Patient What is your living situation today?: I have a steady place to live Within the past 12 months, did the food you bought not last and you didn't have the money to get more?: Never true Within the past 12 months, did you worry whether your food would run out before you got money to buy more?: Never true Do you have trouble paying for medicines?: No Do you have trouble getting transportation to medical appointments?: No Do you have trouble paying your heating and electricity bill?: No Do you have trouble taking care of your child, family member or friend?: No Do you have trouble with day-to-day activities such as bathing, preparing meals, shopping, managing finances, etc.?: No Are you currently unemployed and looking for a job?: No Are you interested in more education?: No Please select the resources that you would like help with: None Currently or been in a relationship where the following occur: No concerns reported THRIVE Score: 0 AUDIT C Alcohol Use Questionnaire (AUDIT-C) 1. How often do you have a drink containing alcohol?: Never 3. How often do you have six or more drinks on one occasion?: Never Total Score: 0 TOY-7 AMB Questionnaire TOY-7 Date TOY - 7 assessed: 09/29/24 Source: Developed by Drs. Francisco Javier Fernandez, Tia Alvarado, Fermin Plata and colleagues, with an educational janene from [employer]. Review of Systems Const Denies body aches, Denies chills, Denies excessive sweating, Denies fatigue, Denies fever(s) and Denies headache(s) Eyes Denies blurry vision ENT Denies dysphagia, Denies vertigo, Denies dizziness, Denies headache(s), Denies hearing loss and Denies tinnitus Card Denies chest pain, Denies chest pain with activity, Denies syncope, Denies irregular heart rhythm and Denies dyspnea Resp Denies chest congestion, Denies cough, Denies hemoptysis, Denies dyspnea and Denies wheezing GI Denies abdominal pain, Denies melena, Denies hematochezia, Denies coffee ground emesis, Denies dysphagia, Denies diarrhea, Denies nausea and Denies vomiting Denies difficulty urinating, Denies dysuria, Denies urinary frequency, Denies urinary hesitancy and Denies urinary urgency Musc Denies arthralgias, Denies limited range of motion, Denies muscle cramps and Denies muscle weakness Skin/Breast Denies rash and Denies skin ulcer Neuro Denies Abnormal speech present, Denies confusion, Denies vertigo, Denies dizziness, Denies syncope, Denies headache(s), Denies memory loss and Denies seizure-like activity Psych Denies anxiety, Denies confusion, Denies depression, Denies memory loss, Denies panic attacks and Denies paranoia Endo Denies excessive sweating, Denies fatigue, Denies flushing, Denies polydipsia and Denies polyuria Aller/Immun Denies wheezing Physical exam (Primary Care) Vital Signs: Last Vital Signs Temp 96.9 F 01/20/25 13:25 Pulse 78 01/20/25 13:25 Resp 16 01/20/25 13:25 BP 124/80 01/20/25 13:25 Pulse Ox 95 01/20/25 13:25 Oxygen Delivery Method Room Air 01/20/25 13:25 BMI result Body Mass Index 63.3 Tobacco/Smoking Status: Tobacco use Status Tobacco use date assessed 09/29/24 01/20/25 13:25 Patient Tobacco Use Status Never used Tobacco 01/20/25 13:25 e-Cigarette/Vaping Use Never Used 01/20/25 13:25 Thrive Assessment: Date of Thrive Assessment Date Thrive assessed 09/29/24 01/20/25 13:25 Currently or been in a relationship where the following occur: No concerns reported Const General: cooperative, comfortable, no acute distress, alert and awake; No confusion Orientation/consciousness: oriented to person, oriented to place, patient oriented x3 and No confusion HENMT Head: Yes normocephalic Ears: external ears normal and TM's normal bilaterally Face and sinus: No sinus tenderness Mouth: Normal oral and palatal mucosa present and tongue normal Teeth and gingiva: dentition normal and gingiva normal Throat: Yes posterior oropharynx normal, Yes tonsils normal and Yes uvula midline Eyes Conjunctivae: conjunctivae normal Sclerae: sclerae normal Pupils: Equal, round and reactive pupils present EOM: EOMs intact bilaterally Direct Ophthalmoscopy: No no photophobia Neck Neck: Yes no lymphadenopathy, No tender and Yes no JVD Thyroid: Thyroid normal Carotids: no bruits Chest Chest palpation & inspection: no tenderness Resp Effort & Inspection: normal respiratory effort, no audible wheezes, not labored and no stridor Auscultation: no crackles, no rales, no rhonchi and no wheezes Cardio Jugular venous distension: no JVD Rate: regular rate, not bradycardic and not tachycardic Rhythm: regular rhythm Bruits: no carotid bruits Peripheral pulses: Peripheral pulses 2+ throughout GI Inspection: Yes normal to inspection, No abdominal wall ecchymosis and No visible herniation Palpation (GI): Soft to palpation, nontender, no guarding, not rigid and No hepatosplenomegaly present Auscultation: normoactive bowel sounds General: Yes no CVA tenderness Back/Spine/Pelvis Back: no CVA tenderness and No back tenderness Cervical Spine: cervical ROM normal Thoracic/Lumbar Spine: thoracic and lumbar spine normal to inspection, straight leg raise negative bilaterally, No thoraco-lumbar ROM limited and No lumbar spinal tenderness Skin Lesions: no lesions Rashes: no rashes Wounds: no wounds Neuro General: oriented to person, oriented to place, patient oriented x3, CN's II-XI intact bilaterally and No confusion Cranial nerves: Yes Equal, round and reactive pupils present and Yes Normal accommodation reflex present Cognition (Neuro): normal cognition Speech: No Abnormal speech present Gait exam (Neuro): Normal gait present Motor exam (neuro): 5/5 motor strength present throughout Extrem Right upper extremity: full ROM; no cyanosis Left upper extremity: full ROM; no cyanosis Right lower extremity: no edema Left lower extremity: no edema Psych Appearance: grossly normal Mental Status: mental status grossly normal Affect: normal affect Attitude: cooperative Thought process: Normal thought process present Office Procedures Flu Questionnaire Does the patient have a severe egg allergy?: No Does the patient have severe life threatening allergies?: No Does the patient have a fever or illness today?: No Has the patient ever had Guillain-Ryan Syndrome?: No Has the patient ever had any past reaction to a flu shot?: No Immunizations Fluarix [id number] (PF) 45 mcg (15 mcg x 3)/0.5 mL IM syringe Performing Provider: Michael Shelton PA-C Performing [place] [facility] Administered by: Krissy Mejia CMA on 01/20/25 13:59 Dose Route Admin Location Dispensed Lot Number Expiration Date NDC Signals Collector/Analyst 0.5 mL IM Right Deltoid 0.5 mL [id number] 08/09/25 93620-767-25 [employer] other things you bakeITHKLINE VIS Given Date VIS Provided VIS Publication Date 01/20/25 Single Vaccine 24 Eligibility Eligibility Date Funding Source Not VFC Eligible 01/20/25 Private pneumoc 20-marcelo conj-dip cr(PF) 0.5 mL IM syringe Performing Provider: Michael Shelton PA-C Performing Location[place] [facility] [place] [facility] Administered by: Krissy Mejia CMA on 01/20/25 13:59 Dose Route Admin Location Dispensed Lot Number Expiration Date [place] Signals Collector/Analyst 0.5 mL IM Left Deltoid 0.5 mL [id number] 11/09/25 6868-3874-06 [employer] Total Dispensed Waste 0.5 mL 0 % VIS Given Date VIS Provided VIS Publication Date 01/20/25 Single Vaccine 24 Eligibility Eligibility Date Funding Source Not [facility] Eligible 01/20/25 Private Coding Level of Care Code Est Pt Prev Care [id number]) Diagnoses Annual physical exam Z00.00 AMANDO (obstructive sleep apnea) G47.33 Morbid obesity with BMI of 60.0-69.9, adult E66.01; Z68.44 Assessment & Plan Assessment & Plan (1) Annual physical exam: Code(s): Z00.00 - Encounter for general adult medical examination without abnormal findings Category: Medical Plan: As per HPI (2) AMANDO (obstructive sleep apnea): Code(s): G47.33 - Obstructive sleep apnea (adult) (pediatric) Category: Medical Plan: Patient has been diagnosed with severe obstructive sleep apnea. Had pulmonology evaluation. CPAP machine settings are to be at 12 cm. A prescription for a CPAP machine will be provided to the patient for his obstructive sleep apnea. He will also receive printed copies of his prior sleep study and titration study results to present to the medical supply store. Will also try to prescribe patient's Zepbound to help him with weight reduction and control of his obstructive sleep apnea as well. (3) Morbid obesity with BMI of 60.0-69.9, adult: Code(s): E66.01 - Morbid (severe) obesity due to excess calories; Z68.44 - Body mass index [BMI] 60.0-69.9, adult Category: Medical Plan: Patient does understand his BMI is over 60 will try to me physically active and adapt to better eating habits to reduce his weight. He is interested in speaking with the dietitian as well too, with some better eating habits and meal planning. Orders: Orders Influenza [id number] Immunization Today Z23 - Encounter for immunization Pneumococcal 20 Immunization Today G47.33 - Obstructive sleep apnea (adult) (pediatric), Z23 - Encounter for immunization Referrals Nutrition/Dietitian Referral E66.01 - Morbid (severe) obesity due to excess calories, Z68.44 - Body mass index [BMI] 60.0-69.9, adult Medications: New tirzepatide (weight loss) (Zepbound) for 4 weeks 2.5 mg (0.5 mL) subcut QWEEK 2 mL 0RF 4 weeks E66.01 - Morbid (severe) obesity due to excess calories, G47.33 - Obstructive sleep apnea (adult) (pediatric), Z68.44 - Body mass index [BMI] 60.0-69.9, adult CPAP (CPAP Machine/Device) Recommendations made for CPAP with setting of 12 cm 1 ea 0RF G47.33 - Obstructive sleep apnea (adult) (pediatric)
[2025-01-20 13:25] VITALS: BP 124/80; PULSE 78; RESP 16; TEMP 36.1; O2SAT 95; BMI 63.3
== END 2025-01-20 14:03 | disposition home or self-care (01) ==
LOC: HO.HMCH 13:21
PROVIDERS: PCP Physician Assistant; Visit Provider Physician Assistant
DX: Z23 Encounter for immunization (principal); G47.33 Obstructive sleep apnea (adult) (pediatric)

== ENCOUNTER → 2025-01-20 13:20 | Outpatient (BNVA) | payer BC, SELFPAY | PROVIDERS: PCP Physician Assistant; Visit Provider Physician Assistant | DX: Z23 Encounter for immunization (principal); Z00.00 Encounter for general adult medical examination without abnormal findings; G47.33 Obstructive sleep apnea (adult) (pediatric); E66.01 Morbid (severe) obesity due to excess calories; Z68.44 Body mass index [BMI] 60.0-69.9, adult | CPT/HCPCS: 90471; 90472; 90656; 90677 ==